=== PATIENT | male | born 1945 | race Caucasian/White ===

== ENCOUNTER 2020-07-15 13:33 | Emergency (ER) | payer MEDICARE, MEDICAID ==
[~2020-07-15] VITALS: Ht 172.7 cm; Wt 90.0 kg
[~2020-07-15 13:33] MED LIST: AMLO10TA80 PO; ASPI325T85 PO; ATOR20TA65 PO; CALC667C PO; CELL5 PO; DOCU-150 PO; ERGO400T7 PO; ERYTHROMYCIN OP; FOLI-43 PO; Humalog SUBCUT; INSU3INS6 SUBCUT; METO-539 PO; PRED5TAB48 PO; XALAO EACHEYE; epogen SUBCUT
[2020-07-15 13:43] VITALS: BP 190/78
[2020-07-15] MEDS ORDERED: ACETAMINOPHEN 325MG TABLET PO ONE (18:45)
[2020-07-15 21:28] LABS: BASOPHILS % 0.7 % (0.0-2.0); EOSINOPHILS % 4.2 % (0.0-5.0); HEMATOCRIT. 29.9 % (42.0-52.0); HEMOGLOBIN. 10.3 g/dL (14.0-18.0); LYMPHOCYTES % 20.9 % (20.0-50.0); MEAN CORPUSCULAR HEMOGLOBIN 32.6 pg (28.0-32.0); MEAN CORPUSCULAR VOLUME 94.6 fL (80.0-94.0); MEAN PLATELET VOLUME 7.3 fl (7.4-10.4); MONOCYTES % 13.5 % (2.0-8.0); NEUTROPHILS % 60.7 % (40.0-76.0); PLATELET 91 x1000/uL (130-400); RED BLOOD CELL COUNT 3.16 mill/uL (4.7-6.1); RED CELL DISTRIBUTION WIDTH 12.9 % (11.6-14.6)
[2020-07-15 21:35] LABS: CHLORIDE 94 mEq/L (98-107)
[2020-07-15 21:39] LABS: ETHANOL BLOOD < 10 mg/dL
== END 2020-07-16 01:38 | disposition home or self-care (01) ==
LOC: ER 13:47
DX: M79.18 Myalgia, other site (principal); R53.83 Other fatigue; I12.0 Hypertensive chronic kidney disease with stage 5 chronic kidney disease or end stage renal disease; E11.22 Type 2 diabetes mellitus with diabetic chronic kidney disease; N18.6 End stage renal disease; I44.7 Left bundle-branch block, unspecified; Z99.2 Dependence on renal dialysis; Z79.4 Long term (current) use of insulin; Z79.82 Long term (current) use of aspirin; Z79.899 Other long term (current) drug therapy
CPT/HCPCS: 36415; 80053; 80320; 84484; 85025; 93005; 99285; G0480

== ENCOUNTER 2022-03-30 08:45 | Inpatient (IN) | payer MEDICARE, MEDICAID ==
[~2022-03-30] VITALS: Ht 162.6 cm; Wt 59.9 kg
[~2022-03-30 08:45] MED LIST changes: +AMLO5TAB88 MT; +ASPI-867 PO; -ASPI325T85 PO; +ATOR40TA70 MT; +COR3 PO; +LISI-186 PO
[2022-03-30] MEDS ORDERED: ASPIRIN 81MG TABLET PO ONE (09:15)
[2022-03-30 09:37] LABS: BASOPHILS % 0.6 % (0.0-2.0); EOSINOPHILS % 3.3 % (0.0-5.0); HEMATOCRIT. 29.6 % (42.0-52.0); HEMOGLOBIN. 9.7 g/dL (14.0-18.0); LYMPHOCYTES % 11.9 % (20.0-50.0); MEAN CORPUSCULAR HEMOGLOBIN 32.2 pg (28.0-32.0); MEAN CORPUSCULAR VOLUME 97.8 fL (80.0-94.0); NEUTROPHILS % 75.2 % (40.0-76.0); PLATELET 158 x1000/uL (130-400); RED BLOOD CELL COUNT 3.02 mill/uL (4.7-6.1); RED CELL DISTRIBUTION WIDTH 21.2 % (11.6-14.6)
[2022-03-30 09:46] LABS: CHLORIDE 97 mEq/L (98-107)
[2022-03-30 10:07] LABS: ETHANOL BLOOD < 10 mg/dL
[2022-03-30] MEDS ORDERED: AZITHROMYCIN 500MG/250ML 250 ML IV ONE (14:00)
[2022-03-30] MEDS ORDERED: CEFTRIAXONE 1 G PREMIX 50 ML IV ONE (14:00)
[2022-03-30] MEDS ORDERED: IPRATROPIUM/ALBUTEROL 0.5-3(2.5)MG/3ML NEB NEB PRN (14:15)
[2022-03-30] MEDS ORDERED: GUAIFENESIN 200MG/10ML SUGAR FREE UDC PO PRN (14:15)
[2022-03-30] MEDS ORDERED: ONDANSETRON HCL 4MG/2ML INJ IV PRN (14:15)
[2022-03-30] MEDS ORDERED: ACETAMINOPHEN 325MG TABLET PO PRN ×2 (14:15)
[2022-03-30] MEDS ORDERED: CLONIDINE 0.1MG TABLET PO PRN (14:15)
[2022-03-30] MEDS ORDERED: MAGNESIUM/ALUMINUM HYDROXIDE/SIMETHICONE 30ML UDC PO PRN (14:15)
[2022-03-30] MEDS ORDERED: HYDROCODONE/ACETAMINOPHEN 5/325MG TABLET PO PRN (14:15)
[2022-03-30] MEDS ORDERED: AZITHROMYCIN 500MG/250ML 250 ML IV SCH (16:30)
[2022-03-30] MEDS ORDERED: CEFTRIAXONE 1 G PREMIX 50 ML IV SCH (16:30)
[2022-03-30 17:40] VITALS: BP 103/65
[2022-03-30 19:07] LABS: PHOSPHORUS 2.6 mg/dL (2.5-4.9)
[2022-03-30 20:00] VITALS: BP 135/62
[2022-03-30] MEDS ORDERED: NALOXONE HCL 0.4MG/ML VIAL IV PRN (20:00)
[2022-03-30] MEDS: ENOXAPARIN 30MG/0.3ML SYR SUBCUT SCH (21:42)
[2022-03-31] VITALS: BP_SYST 112; BP_SYST 22; BP_DIAS 52; BP_DIAS 96
[2022-03-31 04:00] VITALS: BP 134/75
[2022-03-31 06:57] LABS: CHLORIDE 95 mEq/L (98-107)
[2022-03-31 07:05] LABS: BASOPHILS % 0.6 % (0.0-2.0); EOSINOPHILS % 4.1 % (0.0-5.0); HEMOGLOBIN. 10.8 g/dL (14.0-18.0); LYMPHOCYTES % 14.1 % (20.0-50.0); MEAN CORPUSCULAR HEMOGLOBIN 32.1 pg (28.0-32.0); MEAN CORPUSCULAR VOLUME 98.1 fL (80.0-94.0); MEAN PLATELET VOLUME 7.4 fl (7.4-10.4); MONOCYTES % 11.1 % (2.0-8.0); NEUTROPHILS % 70.1 % (40.0-76.0); PLATELET 160 x1000/uL (130-400); RED BLOOD CELL COUNT 3.36 mill/uL (4.7-6.1); RED CELL DISTRIBUTION WIDTH 20.6 % (11.6-14.6)
[2022-03-31 12:00] VITALS: BP 129/76
[2022-03-31] MEDS: CEFTRIAXONE 1,000 MG in DEXTROSE 5% WATER 50 ML IV SCH (15:28)
[2022-03-31 16:00] VITALS: BP 127/73
[2022-03-31] MEDS ORDERED: AZITHROMYCIN 500 MG in DEXT 5% WATER 250 ML IV SCH (17:00)
[2022-03-31 18:22] LABS: HEPATITIS B SURFACE ANTIGEN NEGATIVE
[2022-03-31 20:00] VITALS: BP 125/73
[2022-03-31] MEDS: ENOXAPARIN 30MG/0.3ML SYR SUBCUT SCH (21:24)
[2022-04-01] VITALS (7 sets, daily range): BP systolic 129–155; BP diastolic 65–81
[2022-04-01 12:19] LABS: BASOPHILS % 0.9 % (0.0-2.0); EOSINOPHILS % 4.7 % (0.0-5.0); HEMATOCRIT. 32.3 % (42.0-52.0); HEMOGLOBIN. 10.7 g/dL (14.0-18.0); LYMPHOCYTES % 13.5 % (20.0-50.0); MEAN CORPUSCULAR HEMOGLOBIN 32.8 pg (28.0-32.0); MEAN CORPUSCULAR VOLUME 98.8 fL (80.0-94.0); MEAN PLATELET VOLUME 7.8 fl (7.4-10.4); MONOCYTES % 11.4 % (2.0-8.0); NEUTROPHILS % 69.5 % (40.0-76.0); PLATELET 144 x1000/uL (130-400); RED BLOOD CELL COUNT 3.27 mill/uL (4.7-6.1); RED CELL DISTRIBUTION WIDTH 20.2 % (11.6-14.6)
[2022-04-01] MEDS: CEFTRIAXONE 1,000 MG in DEXTROSE 5% WATER 50 ML IV SCH (12:25)
[2022-04-01] MEDS ORDERED: SODIUM POLYSTYRENE SULFONATE 15 G/60 ML BOT PO SCH (13:00)
[2022-04-01] MEDS ORDERED: LOSARTAN POTASSIUM 25 MG TABLET PO SCH (16:30)
[2022-04-01] MEDS ORDERED: LISINOPRIL 5MG TABLET PO SCH (17:00)
[2022-04-01] MEDS ORDERED: SODIUM POLYSTYRENE SULFONATE 15 G/60 ML BOT PO NR (17:15)
[2022-04-01] MEDS ORDERED: CARVEDILOL 3.125 MG TABLET PO SCH ×2 (21:00)
[2022-04-01] MEDS: ENOXAPARIN 30MG/0.3ML SYR SUBCUT SCH (21:53)
== END 2022-04-01 22:25 | disposition home or self-care (01) | DRG 193 ==
LOC: ER 08:45 → 7WST 13:56 → EDBEDREQ 14:00 → EDBEDREQTM 14:00 → SUPCPDRO 14:01 → ENRESERV 15:30
PROVIDERS: ADMIT Internal Medicine; ATTEND Internal Medicine
DX: J18.9 Pneumonia, unspecified organism (principal); I50.43 Acute on chronic combined systolic (congestive) and diastolic (congestive) heart failure; N18.6 End stage renal disease; I13.2 Hypertensive heart and chronic kidney disease with heart failure and with stage 5 chronic kidney disease, or end stage renal disease; I44.0 Atrioventricular block, first degree; I44.4 Left anterior fascicular block; E87.5 Hyperkalemia; E78.5 Hyperlipidemia, unspecified; H54.8 Legal blindness, as defined in USA; D64.9 Anemia, unspecified; I08.3 Combined rheumatic disorders of mitral, aortic and tricuspid valves; E11.22 Type 2 diabetes mellitus with diabetic chronic kidney disease; Z90.5 Acquired absence of kidney; Z86.73 Personal history of transient ischemic attack (TIA), and cerebral infarction without residual deficits; Z79.82 Long term (current) use of aspirin; Z79.899 Other long term (current) drug therapy
CPT/HCPCS: 36415; 71045; 71250; 80048; 80053; 80061; 80320; 83036; 83605; 83735; 83880; 84100; 84145; 84484; 85025; 86705; 86709; 86803; 87340; 93005; 93306; 99291; J0456; J0696; J1650; J7060; G0480

== ENCOUNTER 2022-06-27 18:53 | Inpatient (IN) | payer MEDICARE, MEDICAID ==
[~2022-06-27] VITALS: Ht 172.7 cm; Wt 51.0 kg
[~2022-06-27 18:53] MED LIST changes: -AMLO10TA80 PO; -AMLO5TAB88 MT; -ATOR20TA65 PO; -METO-539 PO
[2022-06-27] MEDS ORDERED: OLANZAPINE 10 MG/VIAL IM ONE (21:45)
[2022-06-27 22:31] LABS: BASOPHILS % 1.2 % (0.0-2.0); HEMATOCRIT. 31.1 % (42.0-52.0); LYMPHOCYTES % 14.8 % (20.0-50.0); MEAN CORPUSCULAR HEMOGLOBIN 32.7 pg (28.0-32.0); MEAN CORPUSCULAR VOLUME 101.5 fL (80.0-94.0); MONOCYTES % 8.7 % (2.0-8.0); NEUTROPHILS % 65.3 % (40.0-76.0); PLATELET 62 x1000/uL (130-400); RED BLOOD CELL COUNT 3.06 mill/uL (4.7-6.1); RED CELL DISTRIBUTION WIDTH 17.5 % (11.6-14.6)
[2022-06-27 22:50] LABS: INR 1.3; PROTHROMBIN TIME 13.7 sec (9.6-11.0)
[2022-06-27 22:58] LABS: CHLORIDE 95 mEq/L (98-107)
[2022-06-28] VITALS (9 sets, daily range): BP systolic 99–127; BP diastolic 40–78
[2022-06-28] MEDS ORDERED: CLONIDINE 0.1MG TABLET PO PRN
[2022-06-28] MEDS ORDERED: ONDANSETRON HCL 4MG/2ML INJ IV PRN
[2022-06-28] MEDS ORDERED: IPRATROPIUM/ALBUTEROL 0.5-3(2.5)MG/3ML NEB NEB PRN
[2022-06-28] MEDS ORDERED: ACETAMINOPHEN 325MG TABLET PO PRN ×2
[2022-06-28] MEDS ORDERED: MAGNESIUM/ALUMINUM HYDROXIDE/SIMETHICONE 30ML UDC PO PRN
[2022-06-28] MEDS ORDERED: HYDROCODONE/ACETAMINOPHEN 5/325MG TABLET PO PRN
[2022-06-28 05:36] LABS: BASOPHILS % 1.4 % (0.0-2.0); EOSINOPHILS % 9.1 % (0.0-5.0); HEMATOCRIT. 30.8 % (42.0-52.0); HEMOGLOBIN. 9.9 g/dL (14.0-18.0); LYMPHOCYTES % 15.1 % (20.0-50.0); MEAN CORPUSCULAR HEMOGLOBIN 32.9 pg (28.0-32.0); MEAN CORPUSCULAR VOLUME 102.7 fL (80.0-94.0); MEAN PLATELET VOLUME 8.1 fl (7.4-10.4); MONOCYTES % 11.4 % (2.0-8.0); PLATELET 55 x1000/uL (130-400); RED CELL DISTRIBUTION WIDTH 17.5 % (11.6-14.6)
[2022-06-28 05:54] LABS: CHLORIDE 97 mEq/L (98-107)
[2022-06-28 06:10] LABS: T4 FREE 0.77 ng/dL (0.76-1.46); TOTAL IRON BINDING CAPACITY 113 ug/dL (250-450)
[2022-06-28 06:37] LABS: VITAMIN B12 SERUM 1979 pg/mL (211-911)
[2022-06-28] MEDS ORDERED: ENOXAPARIN 30MG/0.3ML SYR SUBCUT SCH (09:00)
[2022-06-28 09:18] LABS: FERRITIN 1327 ng/mL (22-322)
[2022-06-28] MEDS: LEVOTHYROXINE SODIUM 50MCG TABLET PO SCH (10:24)
[2022-06-28 10:44] LABS: FOLIC ACID (FOLATE) SERUM > 20.00 ng/mL (>5.38)
[2022-06-28 14:56] LABS: T4 FREE 0.78 ng/dL (0.76-1.46)
[2022-06-28] MEDS: DEXT 5%/0.45% NACL 1000ML 1,000 ML IV SCH (20:00)
[2022-06-28 20:27] LABS: HEPATITIS B SURFACE ANTIGEN NEGATIVE
[2022-06-29] VITALS: BP 125/64
[2022-06-29 04:00] VITALS: BP 123/67
[2022-06-29] MEDS: LEVOTHYROXINE SODIUM 50MCG TABLET PO SCH (06:48)
[2022-06-29 07:59] LABS: BASOPHILS % 1.9 % (0.0-2.0); EOSINOPHILS % 9.6 % (0.0-5.0); HEMATOCRIT. 28.7 % (42.0-52.0); HEMOGLOBIN. 9.4 g/dL (14.0-18.0); LYMPHOCYTES % 18.6 % (20.0-50.0); MEAN CORPUSCULAR HEMOGLOBIN 32.6 pg (28.0-32.0); MEAN CORPUSCULAR VOLUME 99.8 fL (80.0-94.0); MEAN PLATELET VOLUME 7.8 fl (7.4-10.4); NEUTROPHILS % 55.9 % (40.0-76.0); PLATELET 52 x1000/uL (130-400); RED BLOOD CELL COUNT 2.88 mill/uL (4.7-6.1); RED CELL DISTRIBUTION WIDTH 17.2 % (11.6-14.6)
[2022-06-29 08:00] VITALS: BP 145/78
[2022-06-29] MEDS ORDERED: LORAZEPAM 2MG/ML CPJ IV PRN (08:15)
[2022-06-29] MEDS ORDERED: NALOXONE HCL 0.4MG/ML VIAL IV PRN (08:30)
[2022-06-29 10:44] LABS: PHOSPHORUS 3.1 mg/dL (2.5-4.9)
[2022-06-29] MEDS ORDERED: DEXTROSE 50% WATER 50ML SYRINGE IV ONE (11:32)
[2022-06-29] MEDS ORDERED: DEXTROSE 50% WATER 50ML SYRINGE IV PRN ×2 (11:45→20:15)
[2022-06-29] MEDS: DEXT 5%/0.45% NACL 1000ML 1,000 ML IV SCH (11:57)
[2022-06-29 12:00] VITALS: BP 150/84
[2022-06-29] MEDS ORDERED: DEXT 10% WATER 1,000 ML IV SCH (13:15)
[2022-06-29 16:00] VITALS: BP 121/76
[2022-06-29 20:00] VITALS: BP 126/63
[2022-06-29] MEDS: BLOOD SUGAR DIAGNOSTIC STRIP TEST SCH (20:39)
[2022-06-29] MEDS ORDERED: BLOOD SUGAR DIAGNOSTIC STRIP TEST SCH (21:00)
[2022-06-30] VITALS (13 sets, daily range): BP systolic 82–128; BP diastolic 38–75
[2022-06-30] MEDS: BLOOD SUGAR DIAGNOSTIC STRIP TEST SCH ×4 (06:00→18:47)
[2022-06-30] MEDS: LEVOTHYROXINE SODIUM 50MCG TABLET PO SCH (08:04)
[2022-06-30 10:18] LABS: BASOPHILS % 1.2 % (0.0-2.0); EOSINOPHILS % 7.4 % (0.0-5.0); HEMATOCRIT. 30.5 % (42.0-52.0); HEMOGLOBIN. 9.7 g/dL (14.0-18.0); LYMPHOCYTES % 16.7 % (20.0-50.0); MEAN CORPUSCULAR VOLUME 103.3 fL (80.0-94.0); MEAN PLATELET VOLUME 7.8 fl (7.4-10.4); MONOCYTES % 10.2 % (2.0-8.0); NEUTROPHILS % 64.5 % (40.0-76.0); RED BLOOD CELL COUNT 2.95 mill/uL (4.7-6.1); RED CELL DISTRIBUTION WIDTH 18.1 % (11.6-14.6)
[2022-06-30 10:42] LABS: PLATELET 46 x1000/uL (130-400)
[2022-06-30 12:32] LABS: PLATELET ESTIMATE MARKEDLY DECREASED
[2022-06-30 12:44] LABS: PHOSPHORUS 4.2 mg/dL (2.5-4.9)
[2022-06-30] MEDS: MIDODRINE HCL 5MG TABLET PO SCH (20:41)
[2022-07-01] VITALS (34 sets, daily range): BP systolic 50–133; BP diastolic 21–73
[2022-07-01] MEDS: MIDODRINE HCL 5MG TABLET PO SCH ×2 (04:23→13:36)
[2022-07-01] MEDS: BLOOD SUGAR DIAGNOSTIC STRIP TEST SCH ×3 (06:00→12:00)
[2022-07-01] MEDS: LEVOTHYROXINE SODIUM 50MCG TABLET PO SCH (06:30)
[2022-07-01] MEDS ORDERED: NOREPINEPHRINE 32 MG in DEXT 5% WATER 218 ML IV PRN (06:30)
[2022-07-01] MEDS ORDERED: PHENYLEPHRINE 100 MG in DEXT 5% WATER 240 ML IV PRN (06:30)
[2022-07-01 06:50] LABS: BG BASE EXCESS 1.4 mmol/L (-2.0-2.0); BG CARBOXYHEMOGLOBIN 0.8 % (0.5-1.5); BG DEOXYHEMOGLOBIN 0.2 % (0.0-5.0); BG FRACTION INSPIRED OXYGEN 100; BG HCO3 ACT 23.9 mmol/L (22.0-26.0); BG METHEMOGLOBIN 0.1 % (0.0-1.5); BG OXYGEN SATURATION 99.8 % (92.0-98.5); BG OXYHEMOGLOBIN 98.9 % (94.0-97.0); BG PCO2 30.1 mmHg (35.0-45.0); BG PH 7.517 (7.350-7.450); BG PO2 451.6 mmHg (75.0-100.0); BG SAMPLE SITE RIGHT BRACHIAL; BG TOTAL HEMOGLOBIN 9.6 g/dL (12.0-18.0); BG TOTAL RESPIRATORY RATE 28 b/min; BG VENT MODE VENT - AC
[2022-07-01] MEDS ORDERED: FENTANYL CITRATE/PF 2,500 MCG in SODIUM CHLORIDE 0.9% 200 ML IV PRN (09:00)
[2022-07-01 09:28] LABS: INR 1.4; PROTHROMBIN TIME 15.1 sec (9.6-11.0)
[2022-07-01] MEDS ORDERED: VASOPRESSIN 20 UNIT in SODIUM CHLORIDE 0.9% 99 ML IV PRN (11:00)
[2022-07-01] MEDS ORDERED: IPRATROPIUM/ALBUTEROL 0.5-3(2.5)MG/3ML NEB HHN SCH (12:00)
[2022-07-01] MEDS ORDERED: METRONIDAZOLE 500 MG PREMIX 100 ML IV SCH (12:00)
[2022-07-01] MEDS ORDERED: CEFEPIME 1,000 MG in DEXTROSE 5% WATER 50 ML IV SCH (12:00)
[2022-07-01] MEDS: DEXT 10% WATER 1,000 ML IV SCH ×2 (13:37→13:38)
[2022-07-01 15:38] LABS: INR 1.8; PROTHROMBIN TIME 18.2 sec (9.6-11.0)
[2022-07-01] MEDS ORDERED: POTASSIUM CHLORIDE INJ 40 MEQ in DEXT 5% WATER 500 ML IV NR (16:00)
[2022-07-01] MEDS ORDERED: PANTOPRAZOLE SODIUM 40 MG/VIAL IV SCH (17:00)
== END 2022-07-01 15:01 | DRG 871 ==
LOC: ER 19:05 → MICUSO 23:38 → 6EST 06-28 06:20 → MICUNO 07-01 06:01
PROVIDERS: ADMIT Internal Medicine; ATTEND Internal Medicine
PROC: 5A1D70Z Performance of Urinary Filtration, Intermittent, Less than 6 Hours Per Day (ICD-10-PCS; principal; 2022-06-28)
PROC: 4A00X4Z Measurement of Central Nervous Electrical Activity, External Approach (ICD-10-PCS; 2022-06-29)
PROC: 5A1D70Z Performance of Urinary Filtration, Intermittent, Less than 6 Hours Per Day (ICD-10-PCS; 2022-06-30)
PROC: 0BH17EZ Insertion of Endotracheal Airway into Trachea, Via Natural or Artificial Opening (ICD-10-PCS; 2022-07-01)
PROC: 06HY33Z Insertion of Infusion Device into Lower Vein, Percutaneous Approach (ICD-10-PCS; 2022-07-01)
PROC: 5A1935Z Respiratory Ventilation, Less than 24 Consecutive Hours (ICD-10-PCS; 2022-07-01)
PROC: 5A12012 Performance of Cardiac Output, Single, Manual (ICD-10-PCS; 2022-07-01)
PROC: 5A2204Z Restoration of Cardiac Rhythm, Single (ICD-10-PCS; 2022-07-01)
DX: A41.9 Sepsis, unspecified organism (principal); E43 Unspecified severe protein-calorie malnutrition; R65.21 Severe sepsis with septic shock; G92.8 Other toxic encephalopathy; J96.01 Acute respiratory failure with hypoxia; N18.6 End stage renal disease; I13.2 Hypertensive heart and chronic kidney disease with heart failure and with stage 5 chronic kidney disease, or end stage renal disease; D61.818 Other pancytopenia; Z68.1 Body mass index [BMI] 19.9 or less, adult; K92.1 Melena; R64 Cachexia; T86.12 Kidney transplant failure; E87.6 Hypokalemia; D53.9 Nutritional anemia, unspecified; I46.9 Cardiac arrest, cause unspecified; G93.89 Other specified disorders of brain; E86.9 Volume depletion, unspecified; E78.5 Hyperlipidemia, unspecified; E11.649 Type 2 diabetes mellitus with hypoglycemia without coma; E03.9 Hypothyroidism, unspecified; E11.22 Type 2 diabetes mellitus with diabetic chronic kidney disease; H54.7 Unspecified visual loss; I50.9 Heart failure, unspecified; Z20.822 Contact with and (suspected) exposure to COVID-19; Z99.2 Dependence on renal dialysis; Z86.73 Personal history of transient ischemic attack (TIA), and cerebral infarction without residual deficits; Z91.15 Patient's noncompliance with renal dialysis; Z79.4 Long term (current) use of insulin; Z98.890 Other specified postprocedural states; Z90.5 Acquired absence of kidney; R62.7 Adult failure to thrive; Y83.0 Surgical operation with transplant of whole organ as the cause of abnormal reaction of the patient, or of later complication, without mention of misadventure at the time of the procedure
CPT/HCPCS: 31500; 36415; 36600; 70551; 71045; 80048; 80053; 82270; 82375; 82607; 82728; 82746; 82805; 82962; 83036; 83540; 83550; 83605; 83735; 84100; 84145; 84439; 84443; 84484; 85025; 85384; 86705; 86709; 86803; 86920; 87015; 87045; 87340; 87426; 87427; 87449; 89055; 90935; 93970; 94640; 95816; 97162; 97165; 99285; J0692; J2060; J2370; J2405; J3010; J3480; J3490; J7050; J7060